=== PATIENT | female | born 2000 | race Native Hawaiian/Other Pacific Islander ===

== ENCOUNTER 2022-11-10 20:40 | Emergency (ER) | payer OTHER ==
[~2022-11-10] VITALS: Ht 170.2 cm; Wt 95.3 kg
[2022-11-10 21:59] LABS: PLATELET COUNT 228 K/uL (152-353)
== END 2022-11-10 22:32 | disposition home or self-care (01) ==
LOC: ED 20:40
PROVIDERS: Family Medicine
DX: R51.9 Headache, unspecified (principal); J02.9 Acute pharyngitis, unspecified; R09.81 Nasal congestion; J02.0 Streptococcal pharyngitis; E86.0 Dehydration
CPT/HCPCS: 36415; 85027; 87651; 96372; 99283; J0696; J1885